=== PATIENT | male | born 2005 | race Caucasian/White ===

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

== ENCOUNTER 2025-09-11 22:31 | Inpatient (IN) | payer OTHER ==
[~2025-09-11] VITALS: Ht 180.3 cm; Wt 74.7 kg
[2025-09-11] MEDS ORDERED: Diazepam 5 MG / ML 2ML SYR IV ONE ×2 (22:40→22:50)
[2025-09-11] MEDS ORDERED: NS 1,000 ML IV SCH ×2 (22:50→23:45)
[2025-09-11] MEDS ORDERED: LORazepam 2 MG/ML 1ML Injection IV ONE (22:50)
[2025-09-11 22:55] LABS: BASOPHILS ABSOLUTE AUTO 0.12 K/mm3 (0.00-0.23); BASOPHILS PERCENT AUTO 1 % (0-2); EOSINOPHILS ABSOLUTE AUTO 0.01 K/mm3 (0.00-0.68); EOSINOPHILS PERCENT AUTO 0 % (0-6); Hematocrit 43.7 % (37.0-53.0); Hemoglobin 14.5 g/dL (13.5-17.5); IMMATURE GRAN ABSOLUTE AUTO 0.04 K/mm3 (0.00-0.10); IMMATURE GRAN PERCENT AUTO 0 % (0-1); LYMPHOCYTES ABSOLUTE AUTO 2.12 K/mm3 (0.84-5.20); LYMPHOCYTES PERCENT AUTO 14 % (21-46); MONOCYTES ABSOLUTE AUTO 1.61 K/mm3 (0.16-1.47); MONOCYTES PERCENT AUTO 10 % (4-13); Mean Corpuscular HGB Conc 33.2 g/dL (31.5-36.5); Mean Corpuscular Volume 94 fL (80-100); NEUTROPHILS ABSOLUTE AUTO 11.60 K/mm3 (1.96-9.15); NEUTROPHILS PERCENT AUTO 75 % (41-73); NRBC ABSOLUTE 0.00 K/mm3 (0.00-0.02); NRBC Auto 0.0 /100 WBC (0.0-0.2); Platelet Count 366 K/mm3 (150-400); RDW Coefficient Variation 12.2 % (11.7-14.2); RDW Standard Deviation 42.1 fL (35.1-46.3)
[2025-09-11] MEDS ORDERED: Midazolam HCL 50 MG in NS 40 ML IV PRN (23:25)
[2025-09-12] VITALS (54 sets, daily range): BP systolic 111–147; BP diastolic 77–107
[2025-09-12] MEDS ORDERED: FLU VACC TS2025-26(6MOS UP)/PF 45 MCG/0.5 ML SYRINGE IM SCH (00:55)
[2025-09-12] MEDS ORDERED: Cetylpyridinium Chloride 1 EA MISC MT SCH (00:55)
[2025-09-12] MEDS ORDERED: NS 1,000 ML IV SCH (01:00)
[2025-09-12] MEDS ORDERED: Ondansetron HCl 2 MG / ML 2ML Vial IV PRN (01:00)
[2025-09-12 01:06] LABS: Acetaminophen, Random <2.0 ug/mL (10.0-30.0); Magnesium, Blood 2.0 mg/dL (1.6-2.4); Salicylate <1.7 mg/dL (2.8-20.0)
[2025-09-12 01:10] LABS: Alanine Aminotransfer (ALT/SGP 64 U/L (12-78); Albumin, Blood 4.2 g/dL (3.4-5.0); Albumin/Globulin Ratio 1.4 (0.8-1.8); Anion Gap 12 mmol/L (3-11); Aspartate Aminotrans (AST/SGOT 168 U/L (12-37); Bilirubin, Total 0.8 mg/dL (0.1-1.0); Blood Urea Nitrogen 26 mg/dL (8-24); CO2, Blood 22 mmol/L (21-32); Calcium, Blood 7.6 mg/dL (8.5-10.1); Chloride, Blood 108 mmol/L (98-108); Creatinine, Blood 1.82 mg/dL (0.60-1.20); Globulin, Blood 2.9 g/dL (2.2-4.0); Glucose, Blood 72 mg/dL (70-99); Phosphorus, Blood 2.7 mg/dL (2.5-4.9); Potassium, Blood 6.1 mmol/L (3.5-5.5); Sodium, Blood 136 mmol/L (136-145); Total Protein, Blood 7.1 g/dL (6.4-8.2)
[2025-09-12 01:47] LABS: pH Blood Venous 7.34 (7.34-7.37)
[2025-09-12] MEDS ORDERED: CALCIUM GLUC IN NACL, ISO-OSM 50 ML IV ONE (02:10)
[2025-09-12] MEDS ORDERED: Dextrose 50% 50 ML Vial IV ONE (03:00)
[2025-09-12] MEDS ORDERED: Insulin Regular 100 UNIT/ML 10ML Vial IV ONE (03:00)
[2025-09-12 03:50] LABS: U Amphetamine Screen DETECTED; U Barbiturate Screen Not Detected; U Benzodiazapine Screen DETECTED; U Buprenorphine Screen Not Detected; U Cannabinoids Screen DETECTED; U Cocaine Screen Not Detected; U Methadone Screen Not Detected; U Methamphetamine Screen DETECTED; U Opiates Screen Not Detected; U Oxycodone Screen Not Detected; U Phencyclidine Screen Not Detected
[2025-09-12] MEDS ORDERED: Hydrogen Peroxide 1.5 % Solution MT SCH (04:00)
[2025-09-12 05:42] LABS: Source, Urine Clean Catch
[2025-09-12 05:57] LABS: Bilirubin, Urine Neg (Neg); Color, Urine Yellow (P-Yellow); Glucose Qualitative, Urine Neg (Neg); Ketones, Urine Neg (Neg); Leukocyte Esterase, Urine Neg (Neg); Protein, Urine 3+ (Neg); Specific Gravity, Urine 1.030 (1.003-1.022); Urobilinogen, Urine NORM (Normal)
[2025-09-12 06:13] LABS: White Blood Cells, Urine 0-2 /hpf (0-5)
[2025-09-12 06:21] LABS: U Amphetamine Screen DETECTED; U Barbiturate Screen Not Detected; U Benzodiazapine Screen Not Detected; U Buprenorphine Screen Not Detected; U Cannabinoids Screen DETECTED; U Cocaine Screen Not Detected; U Methadone Screen Not Detected; U Methamphetamine Screen DETECTED; U Opiates Screen Not Detected; U Oxycodone Screen Not Detected; U Phencyclidine Screen Not Detected
--- NOTE | 2025-09-12 06:47 | NUR ---
SHIFT SUMMARY RECEIVED PT FROM ED @ 0118, ON VENT, AC/VC 18, 550, +5, .50 FIO2, SEDATED ON PROPOFOL AND MIDAZOLAM (SEE FLOWSHEET FOR CURRENT RATES). LEMA SPONT X4 WHEN TRANSFERRING TO ICU BED AND REPOSITIONING. NOT OPENING EYES OR FOLLOWING COMMANDS, DOES WITHDRAW ALL 4 EXTREM TO NOXIOUS STIMULI. PUPILS SIZE 7 BILAT AND SLUGGISH ON RIGHT. DR MALONE AWARE. LEFT HAND/WRIST/FA EDEMATOUS AND REDDENED. XRAY ORDERED BY DR MALONE AND HE RELAYED NO FRACTURE SEEN. ELEVATING HAND ON PILLOW. ST 100'S-110'S. 12 EKG COMPLETED THIS AM PER ORDERS. FEBRILE IN ED PRIOR TO ICU ARRIVAL, DOWN TO 98.8 IN ICU. BP STABLE. K+ AT 6.1 WITH ED DRAW, INSULIN AND D50 GIVEN, WELL CALCIUM GLUCONATE. THIS AM LABS SCHEDULED FOR 0700. WILL UPDATE DAY RN WITH ALL OUTSTANDING ISSUES AND PROBLEMS TO DATE. VS CURRENTLY STABLE.
[2025-09-12 07:07] LABS: BASOPHILS ABSOLUTE AUTO 0.02 K/mm3 (0.00-0.23); BASOPHILS PERCENT AUTO 0 % (0-2); EOSINOPHILS ABSOLUTE AUTO 0.00 K/mm3 (0.00-0.68); EOSINOPHILS PERCENT AUTO 0 % (0-6); Hematocrit 39.5 % (37.0-53.0); Hemoglobin 13.5 g/dL (13.5-17.5); IMMATURE GRAN ABSOLUTE AUTO 0.04 K/mm3 (0.00-0.10); IMMATURE GRAN PERCENT AUTO 0 % (0-1); LYMPHOCYTES ABSOLUTE AUTO 0.45 K/mm3 (0.84-5.20); LYMPHOCYTES PERCENT AUTO 3 % (21-46); MONOCYTES ABSOLUTE AUTO 1.22 K/mm3 (0.16-1.47); MONOCYTES PERCENT AUTO 8 % (4-13); Mean Corpuscular HGB Conc 34.2 g/dL (31.5-36.5); Mean Corpuscular Volume 91 fL (80-100); NEUTROPHILS ABSOLUTE AUTO 14.42 K/mm3 (1.96-9.15); NEUTROPHILS PERCENT AUTO 89 % (41-73); NRBC ABSOLUTE 0.00 K/mm3 (0.00-0.02); NRBC Auto 0.0 /100 WBC (0.0-0.2); Platelet Count 182 K/mm3 (150-400); RDW Coefficient Variation 12.8 % (11.7-14.2); RDW Standard Deviation 42.7 fL (35.1-46.3)
--- NOTE | 2025-09-12 07:18 | NUR ---
ASSUMED CARE THIS RN ASSUMED CARE OF PATIENT AT 0700 WITH PRECEPTOR AHMET GALICIA. PATIENT IS INTUBATED AND SEDATED W/ EYES CLOSED DURING BSSR. VENT SETTINGS ARE AC/VC 18/550/5.0/50% WITH SPO2 >95%. TUBE IS 26CM AT TEETH. SYSTOLIC BP >130, MAP >65. MONITOR SHOWS SINUS TACH WITH HR 100-110S. HE HAS NS @ 125ML/HR, PROPOFOL 40MCG/KG/MIN, MIDAZOLAM 10MG/HR. HIS OG TUBE IS AT LOW INTERMITTENT SUCTION. TEMP LANDEROS CATHETER IS PATENT AND DRAINING TO GRAVITY. PATIENT CURRENT TMAX IS 98.8. HE HAS SBW RESTRAINTS IN PLACE AND BILATERAL HANDS ARE WARM, PINK WITH CAP REFILL <3 SECONDS. BED IN LOWEST POSITION, CALL LIGHT IN REACH.
[2025-09-12 07:41] LABS: Alanine Aminotransfer (ALT/SGP 109.0 U/L (12-78); Albumin, Blood 4.2 g/dL (3.4-5.0); Albumin/Globulin Ratio 1.7 (0.8-1.8); Anion Gap 15.0 mmol/L (3-11); Aspartate Aminotrans (AST/SGOT 474.0 U/L (12-37); Bilirubin, Total 1.1 mg/dL (0.1-1.0); Blood Urea Nitrogen 28.0 mg/dL (8-24); CO2, Blood 17.0 mmol/L (21-32); Calcium, Blood 8.4 mg/dL (8.5-10.1); Chloride, Blood 111.0 mmol/L (98-108); Creatinine, Blood 1.58 mg/dL (0.60-1.20); Globulin, Blood 2.5 g/dL (2.2-4.0); Glucose, Blood 78.0 mg/dL (70-99); Potassium, Blood 4.0 mmol/L (3.5-5.5); Sodium, Blood 139.0 mmol/L (136-145); Total Protein, Blood 6.7 g/dL (6.4-8.2)
[2025-09-12] MEDS ORDERED: Pantoprazole Sodium 40 MG Injection IV SCH (09:00)
[2025-09-12 13:23] LABS: Magnesium, Blood 2.5 mg/dL (1.6-2.4)
[2025-09-12 13:49] LABS: Alanine Aminotransfer (ALT/SGP 202.0 U/L (12-78); Albumin, Blood 3.8 g/dL (3.4-5.0); Albumin/Globulin Ratio 1.5 (0.8-1.8); Anion Gap 14.0 mmol/L (3-11); Aspartate Aminotrans (AST/SGOT 1006.0 U/L (12-37); Bilirubin, Total 1.5 mg/dL (0.1-1.0); Blood Urea Nitrogen 27.0 mg/dL (8-24); CO2, Blood 17.0 mmol/L (21-32); Calcium, Blood 8.2 mg/dL (8.5-10.1); Chloride, Blood 111.0 mmol/L (98-108); Creatinine, Blood 1.49 mg/dL (0.60-1.20); Globulin, Blood 2.5 g/dL (2.2-4.0); Glucose, Blood 79.0 mg/dL (70-99); Potassium, Blood 4.4 mmol/L (3.5-5.5); Sodium, Blood 138.0 mmol/L (136-145); Total Protein, Blood 6.3 g/dL (6.4-8.2)
[2025-09-12] MEDS ORDERED: Petrolatum/Mineral Oil/Lanolin 1 APPLIC/50 GM Tube TOP SCH (16:00)
[2025-09-12] MEDS ORDERED: Docusate Sodium Liquid 100 MG UDC PT PRN (16:05)
[2025-09-12] MEDS ORDERED: Magnesium Hydroxide Conc 10 ML UDC PT PRN (16:05)
[2025-09-12] MEDS ORDERED: Propofol 10mg/ml 20 ml Vial (Procedural) IV ONE (17:26)
--- NOTE | 2025-09-12 18:46 | NUR ---
SHIFT SUMMARY NO ACUTE EVENTS THIS SHIFT. PATIENT HAS BEEN RESTING COMFORTABLY WITH EYES CLOSED. AFTER TITRATING SEDATION DOWN PATIENT HAS HAD A RASS BETWEEN -3 TO -2 AND FOLLOWS COMMANDS, SQUEEZING HANDS AND ATTEMPTING TO OPEN EYES. HE IS ABLE TO MOVE ALL 4 LIMBS SPONTANEOUSLY. HE IS CURRENTLY ON VENT, AC/VC 18/550/5.0/21% WITH SPO2 >98%. HIS RESPIRATIONS ARE EVEN AND UNLABORED. SYSTOLIC BP >130, AND HR IMPROVED FROM 120 START OF SHIFT TO 70-80S. HE IS ON PROPOFOL @ 10MCG/KG/MIN, LR @ 250ML/HR. HE HAS OG TUBE TO LOW INTERMITENT SUCTION. TEMP LANDEROS IS PATENT AND DRAINING TURBID DARK TEA COLORED URINE TO GRAVITY WITH A SIGNIFICANT AMOUNT OF SEDIMENT. TMAXX 99.4. SOFT BILATERAL WRIST RESTRAINTS IN PLACE W/ PINK, WARM, CAP REFILL <3. SCDS IN PLACE. FAMILY AT BEDSIDE THROUGHOUT DAY. BED IN LOWEST POSITION, CALL LIGHT IN REACH.
[2025-09-12 19:14] LABS: Anion Gap 13 mmol/L (3-11); Blood Urea Nitrogen 25 mg/dL (8-24); CO2, Blood 18 mmol/L (21-32); Calcium, Blood 8.2 mg/dL (8.5-10.1); Chloride, Blood 111 mmol/L (98-108); Creatinine, Blood 1.32 mg/dL (0.60-1.20); Glucose, Blood 74 mg/dL (70-99); Potassium, Blood 4.4 mmol/L (3.5-5.5); Sodium, Blood 138 mmol/L (136-145)
[2025-09-13] VITALS (88 sets, daily range): BP systolic 115–177; BP diastolic 76–120
[2025-09-13 03:16] LABS: Hematocrit 39.4 % (37.0-53.0); Hemoglobin 13.1 g/dL (13.5-17.5); Mean Corpuscular HGB Conc 33.2 g/dL (31.5-36.5); Mean Corpuscular Volume 93 fL (80-100); NRBC ABSOLUTE 0.00 K/mm3 (0.00-0.02); NRBC Auto 0.0 /100 WBC (0.0-0.2); Platelet Count 142 K/mm3 (150-400); RDW Coefficient Variation 13.2 % (11.7-14.2); RDW Standard Deviation 45.2 fL (35.1-46.3)
[2025-09-13 03:45] LABS: Magnesium, Blood 2.1 mg/dL (1.6-2.4)
[2025-09-13 03:59] LABS: Anion Gap 13 mmol/L (3-11); Blood Urea Nitrogen 24 mg/dL (8-24); CO2, Blood 19 mmol/L (21-32); Calcium, Blood 8.1 mg/dL (8.5-10.1); Chloride, Blood 109 mmol/L (98-108); Creatinine, Blood 1.22 mg/dL (0.60-1.20); Glucose, Blood 87 mg/dL (70-99); Phosphorus, Blood 3.0 mg/dL (2.5-4.9); Potassium, Blood 4.3 mmol/L (3.5-5.5); Sodium, Blood 137 mmol/L (136-145)
--- NOTE | 2025-09-13 05:40 | NUR ---
SHIFT SUMMARY: NO ACUTE EVENTS OVERNIGHT; VSS THROUGHOUT THE SHIFT. PT REMAINS INTUBATED AND SEDATED WITH PROPOFOL GTT @ 40 MCG/KG/HR AND LR @ 200 MLS/HR. PT RAAS -2, WILL RESPOND TO PAIN STIMULI, ATTEMPT TO OPEN EYES AND MOVING ALL EXTREMITES. VENT SETTINGS AC/VC 16/550/5/21%; LUNGS CLEAR, COUGHING THROUGHOUT THE NIGHT WITH MINIMAL SECRETIONS, SPO2 98<. SR ON MONITOR WITH HR 60-80, SBP 130'S. OGT ADVANCED 2 CM, MEASURING @ 60 CM AND VERIFIED WITH CXR. TUBE FEEDINGS STARTED THIS SHIFT PER DR. ALEMAN. VHP INFUSING @ 20 MLS/HR. LANDEROS PATENT AND DRAINING TO GRAVITY; APPROX. 1 L URINE OUTPUT, URINE REMAINS LIGHT BROWN IN COLOR WITH SOME SEDIMENT NOTED. TMAX 99.2, FAN APPLIED AND FEVER RESOLVED. FAMILY AT BEDSIDE AT START OF SHIFT; QUESTIONS ANSWERED AND UPDATED ON PLAN OF CARE. WILL REPORT OFF TO ONCOMING RN.
--- NOTE | 2025-09-13 07:26 | NUR ---
ASSUMED CARE OF PATIENT AT APPROXIMATELY 0700. REPORT RECEIVED FROM GRAYSON DANIELS. PT INTUBATED, SEDATED ON 40 MCG/KG/MIN OF PROPOFOL. FOLLOWING SOME COMMANDS. CONTINUOUS CARDIAC MONITORING IN PLACE. VENT SETTINGS A/C VC 16/550/5/21%. TF INFUSING. TEMP LANDEROS PATENT. LR INFUSING. SEE SHIFT ASSESSMENT FOR FULL DETAILS.
[2025-09-13] MEDS ORDERED: Cetylpyridinium Chloride 1 EA MISC MT SCH (08:20)
[2025-09-13] MEDS ORDERED: FentaNYL Citrate 50 MCG/ML 2 ML Injection IV PRN (09:50)
[2025-09-13] MEDS ORDERED: Enoxaparin 40 MG/0.4 ML SYR SC SCH (10:00)
--- NOTE | 2025-09-13 17:32 | NUR ---
SHIFT SUMMARY PT REMAINED INTUBATED THIS SHIFT. PER DR. RODGERS, GOAL TO TRANSITION FROM PROPOFOL TO PRECEDEX. PROPOFOL ON SB AT APPROXIMATELY 1435, ORDERS FOR PRN FENTANYL PLACED. AT APPROXIMATELY 1510 PT BECAME HIGHLY AGITATED, REACHING FOR ETT. PROPOFOL WAS RESUMED AND TITRATED WITH PRECEDEX FOR EFFECT. PROPOFOL CURRENTLY INFUSING AT 40 MCG/KG/MIN, PRECEDEX AT 1.0 MCG/KG/HR. HR IN 40'S-50'S, DR. RODGERS AWARE c NURSE NOTIFY REGARDING HR AND BP PARAMETERS. HYPERTENSIVE, DR. RODGERS AWARE c ORDERS TO MONITOR. TMAX 101.1, AWAITING ANTIPYRETIC ORDERS. VENT SETTINGS A/C VC 16/550/5/30%. THICK FRYE/GREEN SECRETIONS FROM ETT. NO BM THIS SHIFT. TF INFUSING AT 35 mL/HR. TEMP LANDEROS PATENT AND DRAINING CLEAR GREENISH COLORED URINE TO GRAVITY. LR INFUSING AT 200 mL/HR. WILL CONTINUE TO MONITOR AND REPOR TO ONCOMING RN.
[2025-09-13] MEDS ORDERED: NiCARdipine HCL 50 MG in NS 250 ML IV SCH (17:50)
[2025-09-13] MEDS ORDERED: Acetaminophen 160MG / 5ML 10.15 UDC PT PRN (18:00)
[2025-09-14] VITALS (43 sets, daily range): BP systolic 87–131; BP diastolic 52–89
[2025-09-14 03:38] LABS: NRBC ABSOLUTE 0.00 K/mm3 (0.00-0.02); NRBC Auto 0.0 /100 WBC (0.0-0.2)
[2025-09-14 04:20] LABS: Hematocrit 40.7 % (37.0-53.0); Hemoglobin 13.3 g/dL (13.5-17.5); Mean Corpuscular HGB Conc 32.7 g/dL (31.5-36.5); Mean Corpuscular Volume 95 fL (80-100); NRBC ABSOLUTE 0.00 K/mm3 (0.00-0.02); NRBC Auto 0.0 /100 WBC (0.0-0.2); Platelet Count 90 K/mm3 (150-400); RDW Coefficient Variation 13.1 % (11.7-14.2); RDW Standard Deviation 45.9 fL (35.1-46.3)
--- NOTE | 2025-09-14 05:36 | NUR ---
SHIFT SUMMARY: NO ACUTE CHANGES OVERNIGHT, VSS THROUGHOUT THE SHIFT. PT REMAINS INTUBATED AND SEDATED WITH VENT SETTINGS AC/VC 16/550/5/30% AND SEDATED WITH PRECEDEX @ 0.6 MCG/KG/HR AND PROPOFOL @ 25 MCG/KG/HR. PT CLEAR, INTERMITEN COARSE T/O BUT PT LAVAGED AND SUCTIONED WITH MODERATE WHITE/YELLOWISH, THICK SECRETIONS. PT RAAS -3, RESPONSIVE TO PAIN STIMULI. PT SR ON MONITOR WITH HR 70'S, SBP 100'S. PT OGT @ 60 CM, INFUSING VHP @ 55 MLS/HR. TEMP LANDEROS PATENT AND DRAINING TO GRAVITY; TMAX 101.7, TEMP NOW 98.1. NO BM THIS SHIFT. BED BATH COMPLETED. WILL REPORT OFF TO ONCOMING RN.
[2025-09-14 05:56] LABS: Magnesium, Blood 1.7 mg/dL (1.6-2.4)
--- NOTE | 2025-09-14 07:42 | NUR ---
ASSUMED CARE NOTE: ASSUMED CARE OF PT AT 0700. PT IS SEDATED WITH PROPOFOL AT 30MCG/KG/MIN AND PRECEDEX AT 0.7MCG/KG/HR. PT RESPONSIVE TO VERBAL STIMULI, UNABLE TO FOLLOW COMMANDS. PT INTUBATED WITH 8.0 ETT, 26 AT THE TEETH. VENT SETTINGS A/C VC 16/550/5/40% SPO2 98% LUNG SOUNDS CLEAR T/O. PT IN SR WITH HR IN THE 70'S, BP STABLE, MAP'S ABOVE 65. TUBE FEED VIA OGT AT 55ML/HR, NO GI INTOLERANCE NOTED. LANDEROS PATENT, DRAINING TO GRAVITY, GREEN TINGED URINE NOTED. SCD'S IN PLACE. PLAN OF CARE ONGOING.
[2025-09-14 07:55] LABS: Anion Gap 8 mmol/L (3-11); Blood Urea Nitrogen 16 mg/dL (8-24); CO2, Blood 26 mmol/L (21-32); Calcium, Blood 7.8 mg/dL (8.5-10.1); Chloride, Blood 101 mmol/L (98-108); Creatinine, Blood 0.79 mg/dL (0.60-1.20); Glucose, Blood 99 mg/dL (70-99); Phosphorus, Blood 2.3 mg/dL (2.5-4.9); Potassium, Blood 4.4 mmol/L (3.5-5.5); Sodium, Blood 131 mmol/L (136-145)
--- NOTE | 2025-09-14 10:05 | NUR ---
UPDATE: SBT INITIATED AT 0818, TITRATING SEDATION OFF, SEE FLOWSHEET. TUBE FEEDS OFF AT 0845. PT OPENING EYES, FOLLOWING COMMANDS, AGITATION AT TIMES, ATTEMPTING TO SELF EXTUBATED. , RT AT BEDSIDE. PT EXTUBATED AT 0909 TO RA, PT IS ALERT AND ORIENTED X 3, PT ABLE TO COUGH SECRETIONS, USING YANKAUER INDEPENDENTLY. BP SOFT, MAP'S ABOVE 65. 1020: POISION CONTROL CALLED FOR UPDATE, RECOMMENDATION IS TO TREND LFT'S/VBG UPDATED, ORDERS PLACED.
[2025-09-14] MEDS ORDERED: Mag Sulfate 1 GM/D5% 100ML 100 ML IV ONE (10:40)
[2025-09-14 10:52] LABS: pH Blood Venous 7.44 (7.34-7.37)
[2025-09-14 11:41] LABS: Alanine Aminotransfer (ALT/SGP 664.0 U/L (12-78); Albumin, Blood 2.3 g/dL (3.4-5.0); Albumin/Globulin Ratio 0.9 (0.8-1.8); Aspartate Aminotrans (AST/SGOT 1322.0 U/L (12-37); Bilirubin, Direct 0.4 mg/dL (0.0-0.3); Bilirubin, Indirect 0.7 mg/dL (0.1-0.7); Bilirubin, Total 1.1 mg/dL (0.1-1.0); Globulin, Blood 2.7 g/dL (2.2-4.0); Total Protein, Blood 5.0 g/dL (6.4-8.2)
[2025-09-14] MEDS ORDERED: Petrolatum/Mineral Oil/Lanolin 1 APPLIC/50 GM Tube TOP PRN (16:25)
--- NOTE | 2025-09-14 17:13 | NUR ---
SHIFT SUMMARY: SEE PREVIOUS NOTES. PT IS ALERT AND ORIENTED X 3, DISORIENTED TO SITUATION AT TIMES. PT ABLE TO FOLLOW COMMANDS, OFF PRECEDEX SINCE 1200. PT C/O 4/10 PAIN TO LEFT ANKLE, CALLED, ORDERS FOR X-RAY. PT REMAINS ON RA WITH SPO2 ABOVE 95% NO RESP DISTRESS NOTED. PHONATION WEAK, HOWEVER STRONG COUGH NOTED. PT IN SR TO ST WITH HR BETWEEN 90-110, BP STABLE. PT TOLERATING PO INTAKE, NO S/S OF ASPIRATION NOTED. LANDEROS REMOVED THIS SHIFT, ABLE TO VOID. URINE YELLOW, CLEAR. NO BM THIS SHIFT. PT ABLE TO REPOSITION SELF IN BED, STANDS AT BEDSIDE WITH 2 PERSON ASSIST. PLAN OF CARE ONGOING.
--- NOTE | 2025-09-14 18:51 | NUR ---
ASSUMPTION OF CARE NOTE: PATIENT ARRIVES TO ROOM AT 1845 VIA W/C FROM ICU RM 2. ASSUMED CARE OF PATIENT. PATIENT TRANSFERRED TO BED c 1 ASSIST. PATIENT HAS PIV TO R FOREARM INFUSING LR AND PIV TO LAC SL. PATIENT FAMILY AT BEDSIDE. PATIENT ORIENTATED TO ROOM AND CALL SYSTEM. BED IN LOWEST POSITION c ALARM ON FOR SAFETY. CALL LIGHT IN REACH
[2025-09-15 00:06] VITALS: BP 132/71
[2025-09-15 04:25] VITALS: BP 126/76
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
[2025-09-15 06:36] LABS: Hematocrit 34.2 % (37.0-53.0); Hemoglobin 11.7 g/dL (13.5-17.5); Mean Corpuscular HGB Conc 34.2 g/dL (31.5-36.5); Mean Corpuscular Volume 92 fL (80-100); NRBC ABSOLUTE 0.00 K/mm3 (0.00-0.02); NRBC Auto 0.0 /100 WBC (0.0-0.2); Platelet Count 162 K/mm3 (150-400); RDW Coefficient Variation 12.8 % (11.7-14.2); RDW Standard Deviation 43.0 fL (35.1-46.3)
[2025-09-15 07:14] LABS: Alanine Aminotransfer (ALT/SGP 663.0 U/L (12-78); Albumin, Blood 2.4 g/dL (3.4-5.0); Albumin/Globulin Ratio 0.8 (0.8-1.8); Anion Gap 10.0 mmol/L (3-11); Bilirubin, Direct 0.2 mg/dL (0.0-0.3); Bilirubin, Indirect 0.5 mg/dL (0.1-0.7); Bilirubin, Total 0.7 mg/dL (0.1-1.0); Blood Urea Nitrogen 11.0 mg/dL (8-24); CO2, Blood 24.0 mmol/L (21-32); Calcium, Blood 7.6 mg/dL (8.5-10.1); Chloride, Blood 108.0 mmol/L (98-108); Creatinine, Blood 0.86 mg/dL (0.60-1.20); Globulin, Blood 2.9 g/dL (2.2-4.0); Glucose, Blood 145.0 mg/dL (70-99); Potassium, Blood 3.5 mmol/L (3.5-5.5); Sodium, Blood 138.0 mmol/L (136-145); Total Protein, Blood 5.3 g/dL (6.4-8.2)
[2025-09-15 07:29] LABS: BAND PERCENT MAN 17 % (0-8); BASOPHILS ABSOLUTE MAN 0.00 K/mm3 (0.00-0.23); BASOPHILS PERCENT MAN 0 % (0-2); EOSINOPHILS ABSOLUTE MAN 0.00 K/mm3 (0.00-0.68); EOSINOPHILS PERCENT MAN 0 % (0-6); LYMPHOCYTES ABSOLUTE MAN 1.26 K/mm3 (0.84-5.20); LYMPHOCYTES PERCENT MAN 7 % (21-46); MONOCYTES ABSOLUTE MAN 0.18 K/mm3 (0.16-1.47); MONOCYTES PERCENT MAN 1 % (4-13); NEUTROPHILS ABSOLUTE MAN 16.68 K/mm3 (1.96-9.15); SEG NEUTROPHILS PERCENT MAN 75 % (41-73)
[2025-09-15 07:43] VITALS: BP 124/77
[2025-09-15 11:50] VITALS: BP 125/80
[2025-09-15 15:25] VITALS: BP 143/95
--- NOTE | 2025-09-15 17:27 | NUR ---
[facility] UPDATE NOTE: RECEIVED A CALL X2 FROM LIDYA [facility] ASKED FOR AN UPDATE ON PATIENT MEDICAL STATUS. LIDYA UPDATED c PLAN OF CARE, SHE VRBALIZED UNDERSTANDING c NO FURTHER QUESTIONS. PER LIDYA [facility] WILL CALL BACK AGAIN TOMORROW.
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
[2025-09-15 19:41] VITALS: BP 138/85
[2025-09-16 00:14] VITALS: BP 129/91
--- NOTE | 2025-09-16 00:17 | NUR ---
PATIENT FEBRILE 101.5 ON FIRST SET OF VITALS. LIQUID TYLENOL 650 MG GIVEN AND LATER RECHECK 99.9 AND NOW MIDNIGHT 99.5. WCTM.
--- NOTE | 2025-09-16 04:22 | NUR ---
SHIFT SUMMARY PATIENT HAD NO ACUTE CHANGES. ALERT ORIENTED AND INDEPENDENT. DENIES CHEST PAIN, SOB, AND N/V. FEBRILE (SEE NOTE) IMPROVING. FLAT AFFECT. PIV INTACT. LR INFUSING @ 100 mL/HR. SLEPT ON/OFF. CALL LIGHT IN REACH. BED IN LOWEST POSITION. WILL CONTINUE TO MONITOR UNTIL DAY SHIFT NURSE ASSUMES CARE.
[2025-09-16 04:25] VITALS: BP 136/79
[2025-09-16 06:15] LABS: Hematocrit 35.9 % (37.0-53.0); Hemoglobin 12.1 g/dL (13.5-17.5); Mean Corpuscular HGB Conc 33.7 g/dL (31.5-36.5); Mean Corpuscular Volume 92 fL (80-100); NRBC ABSOLUTE 0.00 K/mm3 (0.00-0.02); NRBC Auto 0.0 /100 WBC (0.0-0.2); Platelet Count 197 K/mm3 (150-400); RDW Coefficient Variation 12.9 % (11.7-14.2); RDW Standard Deviation 43.5 fL (35.1-46.3)
[2025-09-16 07:10] LABS: Magnesium, Blood 1.6 mg/dL (1.6-2.4)
[2025-09-16 07:23] LABS: Alanine Aminotransfer (ALT/SGP 554.0 U/L (12-78); Albumin, Blood 2.7 g/dL (3.4-5.0); Albumin/Globulin Ratio 0.9 (0.8-1.8); Anion Gap 8.0 mmol/L (3-11); Aspartate Aminotrans (AST/SGOT 724.0 U/L (12-37); Bilirubin, Total 0.6 mg/dL (0.1-1.0); Blood Urea Nitrogen 9.0 mg/dL (8-24); CO2, Blood 25.0 mmol/L (21-32); Calcium, Blood 8.2 mg/dL (8.5-10.1); Chloride, Blood 109.0 mmol/L (98-108); Creatinine, Blood 0.71 mg/dL (0.60-1.20); Globulin, Blood 3.1 g/dL (2.2-4.0); Glucose, Blood 108.0 mg/dL (70-99); Potassium, Blood 3.4 mmol/L (3.5-5.5); Sodium, Blood 139.0 mmol/L (136-145); Total Protein, Blood 5.8 g/dL (6.4-8.2)
[2025-09-16 07:29] VITALS: BP 131/80
[2025-09-16] MEDS ORDERED: AMOCLA875 PO (10:10)
[2025-09-16] MEDS ORDERED: CefTRIAXone Sodium 1,000 MG in NS 100 ML IV ONE (10:35)
--- NOTE | 2025-09-16 11:47 | NUR ---
PT ALERT AND ORIENTED X4, INDEPENDENT IN ROOM, VSS, RA, DENIES PAIN. CEFTRIAXONE IV ONE TIME DOSE GIVEN BEFORE DC PER DR MISHRA ORDER. PO[facility] CONTROL CALLED- UPDATE ON LABS AND VS PROVIDED AT 1010 AND INFORMED PT WILL BE DISCHARGING TODAY. 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 PT OFFERED WC UPON DISCHARGE-PT REFUSED AND AMBULATED OFF UNIT WITH GIRLFRIEND, ALL PERSONAL BELONGINGS IN BAGS.
== END 2025-09-16 11:45 | disposition home or self-care (01) | DRG 917 ==
LOC: ER 22:31 → ICUE 09-12 00:25 → MEDS 09-12 00:25 → ICUE 09-12 01:26 → MEDS 09-14 18:44
PROVIDERS: Emergency Medicine; Internal Medicine; Internal Medicine Critical Care Medicine; Student in an Organized Health Care Education/Training Program; ADMIT Internal Medicine
PROC: 0BH17EZ Insertion of Endotracheal Airway into Trachea, Via Natural or Artificial Opening (ICD-10-PCS; principal; 2025-09-12)
PROC: 0T9B70Z Drainage of Bladder with Drainage Device, Via Natural or Artificial Opening (ICD-10-PCS; 2025-09-12)
PROC: 0D9670Z Drainage of Stomach with Drainage Device, Via Natural or Artificial Opening (ICD-10-PCS; 2025-09-12)
DX: T43.651A Poisoning by methamphetamines accidental (unintentional), initial encounter (principal); G92.8 Other toxic encephalopathy; J96.01 Acute respiratory failure with hypoxia; E87.20 Acidosis, unspecified; N17.9 Acute kidney failure, unspecified; M62.82 Rhabdomyolysis; R79.89 Other specified abnormal findings of blood chemistry; R56.9 Unspecified convulsions; F15.129 Other stimulant abuse with intoxication, unspecified; R22.32 Localized swelling, mass and lump, left upper limb; E87.5 Hyperkalemia; Z78.1 Physical restraint status; Z96.652 Presence of left artificial knee joint; E86.0 Dehydration; Z98.890 Other specified postprocedural states; X58.XXXA Exposure to other specified factors, initial encounter
CPT/HCPCS: 31500; 36415; 51702; 70450; 71045; 73080; 73090; 73130; 73610; 80048; 80053; 80076; 81001; 82550; 82803; 82947; 83605; 83735; 83880; 84100; 85025; 85027; 93005; 93010; 94002; 94003; 96365-59; 96375-59; 99285-25; A9270; G0480; J0612; J0696; J1650; J1815; J1953; J2060; J2250; J2470; J2704; J3010; J3360; J3475; J7030; J7120; J7799

== ENCOUNTER → 2025-10-07 | Outpatient (CLI) | payer OTHER ==
[~2025-10-07] MED LIST changes: +AMOCLA875 PO
[2025-10-07 19:22] LABS: BASOPHILS ABSOLUTE AUTO 0.07 K/mm3 (0.00-0.23); BASOPHILS PERCENT AUTO 1 % (0-2); EOSINOPHILS ABSOLUTE AUTO 0.15 K/mm3 (0.00-0.68); EOSINOPHILS PERCENT AUTO 2 % (0-6); Hematocrit 43.3 % (37.0-53.0); Hemoglobin 14.4 g/dL (13.5-17.5); IMMATURE GRAN ABSOLUTE AUTO 0.01 K/mm3 (0.00-0.10); IMMATURE GRAN PERCENT AUTO 0 % (0-1); LYMPHOCYTES ABSOLUTE AUTO 2.16 K/mm3 (0.84-5.20); LYMPHOCYTES PERCENT AUTO 29 % (21-46); MONOCYTES ABSOLUTE AUTO 0.60 K/mm3 (0.16-1.47); MONOCYTES PERCENT AUTO 8 % (4-13); Mean Corpuscular HGB Conc 33.3 g/dL (31.5-36.5); Mean Corpuscular Volume 91 fL (80-100); NEUTROPHILS ABSOLUTE AUTO 4.41 K/mm3 (1.96-9.15); NEUTROPHILS PERCENT AUTO 60 % (41-73); NRBC ABSOLUTE 0.00 K/mm3 (0.00-0.02); NRBC Auto 0.0 /100 WBC (0.0-0.2); Platelet Count 349 K/mm3 (150-400); RDW Coefficient Variation 12.6 % (11.7-14.2); RDW Standard Deviation 41.8 fL (35.1-46.3)
[2025-10-07 19:39] LABS: Alanine Aminotransfer (ALT/SGP 48.0 U/L (12-78); Albumin, Blood 3.9 g/dL (3.4-5.0); Albumin/Globulin Ratio 1.1 (0.8-1.8); Anion Gap 10.0 mmol/L (3-11); Aspartate Aminotrans (AST/SGOT 20.0 U/L (12-37); Bilirubin, Total 0.3 mg/dL (0.1-1.0); Blood Urea Nitrogen 16.0 mg/dL (8-24); CO2, Blood 27.0 mmol/L (21-32); Calcium, Blood 9.4 mg/dL (8.5-10.1); Chloride, Blood 103.0 mmol/L (98-108); Creatinine, Blood 0.78 mg/dL (0.60-1.20); Globulin, Blood 3.5 g/dL (2.2-4.0); Glucose, Blood 102.0 mg/dL (70-99); Potassium, Blood 4.0 mmol/L (3.5-5.5); Sodium, Blood 136.0 mmol/L (136-145); Total Protein, Blood 7.4 g/dL (6.4-8.2)
== END ==
LOC: LAB SHORT 18:41 → LAB 18:41
PROVIDERS: Student in an Organized Health Care Education/Training Program
DX: F19.90 Other psychoactive substance use, unspecified, uncomplicated (principal); M62.82 Rhabdomyolysis
CPT/HCPCS: 80053; 82550; 85025